=== PATIENT | male | born 1975 | race American Indian/Alaskan Native ===

== ENCOUNTER 2018-08-28 21:36 | Emergency (ER) | payer OTHER ==
[2018-08-28] MEDS ORDERED: BOOSTRIX IM ONE (21:49)
--- NOTE | 2018-08-28 21:49 | Emergency Department Report ---
Chief Complaint: Wound/Laceration Stated Complaint: LACERATION TO FINGERTIPS Time Seen by Provider: 08/28/18 21:45 - HPI History of Present Illness: pt presents with a laceration to the edge of the right thumb and index finger that occurred just [employer] unsure of last tetanus pt states he was cutting cucumbers with a manual cutter when it slipped MSE screening note: Focused history and physical exam performed. Due to findings the following was ordered: tetanus immunization ED Disposition for MSE Condition: Stable
[2018-08-28 21:53] VITALS: BP 171/102
[2018-08-29] MEDS ORDERED: SILVER NITRATE TP ONE (00:17)
[2018-08-29] MEDS ORDERED: NORCO 5/325 PO ONE (00:17)
--- NOTE | 2018-08-29 00:48 | Emergency Department Report ---
- General Chief Complaint: Wound/Laceration Stated Complaint: LACERATION TO FINGERTIPS Time Seen by Provider: 08/28/18 21:45 Source: patient Mode of arrival: Ambulatory Limitations: No Limitations - History of Present Illness Initial Comments: pt presents with a laceration to the edge of the right thumb and index finger that occurred just [employer] unsure of last tetanus state 2 yrs ago , pt states he was cutting cucumbers with a manual cutter when it slipped causing skin avulsions right thumb and index finger. Onset/Timin -: hour(s) Extremity Location: Right: Hand Place: home Patient Tetanus UTD: Yes Context: accidental Associated Symptoms: pain - Related Data Previous Rx's Medication Instructions Recorded Last Taken Type traMADol [Ultram] 50 mg PO Q6HR PRN #12 tablet 08/29/18 Unknown Rx Allergies Allergy/AdvReac Type Severity Reaction Status Date / Time No Known Allergies Allergy Unverified 08/28/18 21:38 ED Review of Systems ROS: Stated complaint: LACERATION TO FINGERTIPS Other details as noted in HPI Constitutional: denies: chills, fever Eyes: denies: eye pain, eye discharge, vision change ENT: denies: ear pain, throat pain Respiratory: denies: cough, shortness of breath, wheezing Cardiovascular: denies: chest pain, palpitations Endocrine: no symptoms reported Gastrointestinal: denies: abdominal pain, nausea, diarrhea Genitourinary: denies: urgency, dysuria Musculoskeletal: denies: back pain, joint swelling, arthralgia Skin: other (skin avulsion right thumb and index finger ). denies: rash, lesions Neurological: denies: headache, weakness, paresthesias Psychiatric: denies: anxiety, depression Hematological/Lymphatic: denies: easy bleeding, easy bruising ED Past Medical Hx - Past Medical History Previous Medical History?: No - Surgical History Past Surgical History?: No - Social History Smoking Status: Never Smoker Substance Use Type: None - Medications Home Medications: Home Medications Medication Instructions Recorded Confirmed Last Taken Type traMADol [Ultram] 50 mg PO Q6HR PRN #12 tablet 08/29/18 Unknown Rx ED Physical Exam - General Limitations: No Limitations General appearance: alert, in no apparent distress - Head Head exam: Present: atraumatic, normocephalic - Eye Eye exam: Present: normal appearance - ENT ENT exam: Present: mucous membranes moist - Neck Neck exam: Present: normal inspection - Respiratory Respiratory exam: Present: normal lung sounds bilaterally. Absent: respiratory distress - Cardiovascular Cardiovascular Exam: Present: regular rate, normal rhythm. Absent: systolic murmur, diastolic murmur, rubs, gallop - GI/Abdominal GI/Abdominal exam: Present: soft, normal bowel sounds - Rectal Rectal exam: Present: deferred - Extremities Exam Extremities exam: Present: full ROM, tenderness (right thumb and index finger ), normal capillary refill. Absent: pedal edema, joint swelling, calf tenderness - Expanded Upper Extremity Exam Right Hand Wrist exam: Present: full ROM, tenderness, other (finger tip skin avulsion right thumb and index fingers). Absent: swelling, abrasion, laceration, ecchymosis, deformity, crepidus, dislocation, erythema, amputation, nail avulsion, subungual hematoma Neuro motor exam: Present: wrist extension intact, thumb opposition intact, thumb IP flexion intact, thumb adduction intact, fingers 2-5 abduction intact Neurosensory exam: Present: 2-point discrimination, radial nerve intact, ulnar nerve intact Vascular: Present: normal capillary refill, radial pulse, brachial pulse, ulnar pulse. Absent: pulse deficit radial art, pulse deficit ulnar art, pulse deficit brachial art - Back Exam Back exam: Present: normal inspection, full ROM. Absent: tenderness, rash noted - Neurological Exam Neurological exam: Present: alert, oriented X3, CN II-XII intact, normal gait, reflexes normal - Psychiatric Psychiatric exam: Present: normal affect, normal mood - Skin Skin exam: Present: warm, dry, intact, normal color. Absent: rash ED Course Vital Signs 08/28/18 21:51 Temperature 97.2 F L Pulse Rate 87 Respiratory 87 H Rate Blood Pressure 171/102 O2 Sat by Pulse 98 Oximetry - Laceration /Wound Repair Right Finger Wound Location: upper extremity (right thumb and index finger tip skin avulsion) Wound Length (cm): 1 (less than ) Wound's Depth, Shape: superficial, irregular Wound Explored: clean Irrigated w/ Saline (ccs): 10 Betadine Prep?: Yes Anesthesia: 1% Lidocaine Volume Anesthetic (ccs): 1 Wound Debrided: minimal Wound Repaired With: Dermabond (silver nitrate) Progress: wound cleaned with betadine solution anesthesia with 1% lidocaine plain via digit tips, bleeding controlled with silver nitrate stick, failed attemp with directe pressure for 15 minutes, pressure dressing, and surgiseal dressing, all bleeding is controlled at this time, sterile dressing is intact, rom intact cms in tact, there is no nerve muscle or tendon involvment, pt given wound care instructions will follow up with pcp in 2 days for wound check , will return to ed if symptoms worsen. ED Medical Decision Making - Medical Decision Making skin avulsion , see procedure note, given wound care in structions pt tolerated procedure with minimal distress. will follow up with pcp in 2 days. pt verbalized agreement and understanding of discharge plan. Critical care attestation.: If time is entered above; I have spent that time in minutes in the direct care of this critically ill patient, excluding procedure time. ED Disposition Clinical Impression: Skin avulsion Disposition: TO HOME OR SELFCARE Is pt being admited?: No Does the pt Need Aspirin: No Condition: Stable Instructions: Skin Avulsion (ED) Prescriptions: traMADol [Ultram] 50 mg PO Q6HR PRN #12 tablet PRN Reason: Pain Referrals: LIANA LOUIS MD [Staff Physician] - 3-5 Days Forms: Work/School Release Form(ED) Time of Disposition: 00:59
[2018-08-29] MEDS ORDERED: BOOSTRIX IM ONE (00:55)
== END 2018-08-29 01:05 | disposition home or self-care (01) ==
LOC: ED 21:36
DX: S61.001A Unspecified open wound of right thumb without damage to nail, initial encounter (principal); S61.200A Unspecified open wound of right index finger without damage to nail, initial encounter; W01.111A Fall on same level from slipping, tripping and stumbling with subsequent striking against power tool or machine, initial encounter; Y93.89 Activity, other specified; Y92.098 Other place in other non-institutional residence as the place of occurrence of the external cause; Y99.8 Other external cause status
CPT/HCPCS: 90715; 99282